=== PATIENT | male | born 2005 | race Caucasian/White ===

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

== ENCOUNTER 2024-02-14 04:54 | Emergency (ER) | payer BC, SELFPAY ==
--- NOTE | ~2024-02-14 | XR_ITS ---
EXAMINATION: XR chest 1V portable DATE: 02/14/2024 05:22 INDICATION: Chest pain. Tachycardia. TECHNIQUE: A single frontal view of the chest was obtained. COMPARISON: Chest 2 views 07/27/2006 FINDINGS: There is no pneumonia, pleural effusion, or pneumothorax. The heart size is normal. IMPRESSION: 1. No acute cardiopulmonary disease. Reviewed, dictated and finalized at location E.
[2024-02-14 04:54] VITALS: BP 124/75; PULSE 107; RESP 20; TEMP 37.2; O2SAT 99
[2024-02-14 05:02] VITALS: PULSE 105
--- NOTE | 2024-02-14 05:03 | ED.ARRPALP ---
HPI - Arrhythmia/Palpitations General Chief Complaint: Arrhythmia/Palpitations Stated Complaint: palpations History of Present Illness HPI narrative: Patient with history of anxiety, panic attacks, presents here Because while he was watching Netflix, he started having sharp chest pain, palpitations, feel like he could not catch his breath, fell his hands and face go slightly numb, and he got extremely anxious and was worried that he was having something going on with his heart, he has no cardiac history, he states that this feels different from his usual panic attacks. He is feeling slightly better now that he is here. Related Data Allergies Allergy/AdvReac Type Severity Reaction Status Date / Time Penicillins Allergy Unknown Verified 12/25/23 13:51 Sulfa (Sulfonamide Allergy Unknown Verified 12/25/23 13:51 Antibiotics) Review of Systems Review of Systems: All systems reviewed & are unremarkable except as noted in HPI and below PMFSH Past Medical History Medical History Allergies Anxiety GERD (gastroesophageal reflux disease) Family History Family History Father Heart disease Grandparent Cancer Grandparent Hypertension Depression Social History Social History Smoking status: Never smoker Tobacco type: e-cigarettes/vaping Alcohol intake: current Substance use: current Living arrangements: with family Occupation/Education: student Additional occupation/education comments: [employer] Gender identity (if verbalized by the patient): Male Agree to blood products: Yes Exam Narrative: EXAMINATION OF ORGAN SYSTEMS/BODY AREAS: Constitutional: Vital signs per nursing GENERAL: appears quite anxious, slightly shaky and tense HEAD: Normal with no signs of head trauma. EYES: EOMI, conjunctiva normal ENT: Hearing grossly intact LUNGS: Nonlabored breathing. HEART: tachycardic ABD: [Soft], [nontender to palpation] EXT: Normal range of motion, no lower extremity swelling SKIN: [No rashes or lesions.] NEURO: [Alert and oriented x 3. No gross focal sensory or strength deficits.] PSYCH: anxious affect Course Vital Signs Vital signs: Vital Signs Temperature 98.9 F 07/07/24 04:54 Pulse Rate 107 H 02/14/24 04:54 Respiratory Rate 20 02/14/24 04:54 Blood Pressure 124/75 02/14/24 04:54 Pulse Oximetry 99 02/14/24 04:54 Oxygen Delivery Room Air 02/14/24 04:54 Temperature 98.9 F 02/14/24 04:54 Pulse Rate 105 H 02/14/24 05:02 Respiratory Rate 20 02/14/24 04:54 Blood Pressure 124/75 02/14/24 04:54 Pulse Oximetry 99 02/14/24 04:54 Oxygen Delivery Room Air 02/14/24 04:54 MDM - Arrhythmia/Palpitations MDM Narrative Medical decision making narrative: Patient with history of anxiety/panic attacks presenting here with symptoms consistent with panic attack. On exam patient is [tachycardic and hyperventilating and is anxious]. I will obtain EKG and chest xray to rule out arrhythmia/ischemia, pneumothorax, or other cause of chest discomfort/shortness of breath. he has no DVT symptoms or risk factors for PE. Chest x-ray on my independent interpretation does not show any acute abnormality, no pneumothorax or consolidation; No widened mediastinum, does appear hyperinflated EKG - 12-Lead: Performed at 0506. Interpreted by me. [Sinus rhythm]. Rate 103. [Normal] axis. OH-interval [normal]. QRS duration [normal]. QTc [normal]. [No ST segment elevation or depression]. [T-wave normal]. Impression: No EKG evidence of acute ischemia or dysrhythmia. On reevaluation patient is feeling better, resting comfortably, vital signs now stable. I do feel patient is stable for discharge home at this time with followup to their doctor, and return here if symptoms return or worsen. Agreeable to
--- NOTE | 2024-02-14 05:06 | PC.NURSE ---
Patient states that he had chest pain earlier, but denies any now.
--- NOTE | 2024-02-14 05:09 | ECG_ITS ---
Test Date: 2024-02-14 04:59:34 Measurements Intervals [place] Rate: 103 P: 71 DE: 157 QRS: 78 QRSD: 91 T: 30 QT: 339 QTc: 444 Interpretive Statements SINUS TACHYCARDIA BASELINE ARTIFACT- I, II, III, AVR, AVL, AVF, V1, V4-V6 BORDERLINE ECG No previous ECG available for comparison Electronically Signed On 02-14-2024 07:49:28 CDT by Ben Rashid D.O.
[2024-02-14 05:24] VITALS: BP 127/65; PULSE 94; RESP 17; O2SAT 99
[2024-02-14] MEDS: LORazepam (*CRX) 0.5 MG TABLET PO (05:44)
== END 2024-02-14 05:46 | disposition home or self-care (01) ==
PROVIDERS: Emergency Provider Emergency Medicine; PCP Nurse Practitioner Family
DX: R07.9 Chest pain, unspecified (principal); K21.9 Gastro-esophageal reflux disease without esophagitis; R00.0 Tachycardia, unspecified; F41.9 Anxiety disorder, unspecified
CPT/HCPCS: 71045; 93005; 99284; A9270